=== PATIENT | female | born 1955 | race Caucasian/White ===

== ENCOUNTER 2018-02-28 04:46 | Inpatient (IN) | payer BC ==
[2018-02-27 16:01] LABS: INR 0.93
[2018-02-28] VITALS (11 sets, daily range): BP systolic 140–158; BP diastolic 86–100
[~2018-02-28] VITALS: Ht 159.4 cm; Wt 82.6 kg
--- NOTE | 2018-02-28 02:37 | LEVENE H&P ---
DATE OF ADMISSION: February 28, 2018 IDENTIFICATION/CHIEF COMPLAINT Kristy is a 62-year-old woman with chief complaint of right knee pain. HISTORY OF PRESENT ILLNESS Patient has a history of meniscal root tear requiring repair. She has gone on to develop progressive arthritis. Surgery was indicated to relieve symptoms after failure of nonoperative measures. PAST MEDICAL HISTORY Notable for generally excellent health. PAST SURGICAL HISTORY Notable for the above-noted contralateral knee replacement as well as right knee meniscal repair. ALLERGIES She reports no known drug allergies. CURRENT MEDICATIONS 1. She does take lisinopril, one tablet p.o. daily, for borderline hypertension. 2. She takes Mobic. No other drugs. FAMILY HISTORY Notable for parents with heart disease. SOCIAL HISTORY Negative for tobacco use. Drinks alcohol socially. REVIEW OF SYSTEMS Negative. PHYSICAL EXAMINATION GENERAL: This is a well-developed, well-nourished female who appears stated age. HEENT: Normocephalic, atraumatic. NECK: Supple. LUNGS: Clear to auscultation bilaterally. HEART: Regular rate and rhythm. ABDOMEN: Soft. ORTHOPEDIC EXAMINATION The right knee has varus alignment. She has an effusion present. She is tender at the medial joint line. Her old scars are well healed. Motion is fairly supple. Extensor function is intact. Gross stability is good. Radiographs demonstrate end-stage knee arthritis, most severely affecting the medial compartment. ASSESSMENT Right knee end-stage degenerative joint disease, progressively painful and debilitating, refractory to conservative care. PLAN Per patient request, going to proceed with total knee arthroplasty. The nature of the procedure, risks, benefits, and anticipated rehabilitative course were outlined. The risks of the procedure include but are not limited to , major medical or anesthetic complication, infection, neurovascular injury, blood transfusion, stiffness, scarring, fracture, tendon rupture, instability, implant loosening, migration or failure, persistent or recurrent symptoms, need for additional surgery and other unforeseen. She understands and wishes to proceed. A signed permit is placed in the chart. No guarantees are given or implied. FANI
[~2018-02-28 04:46] MED LIST: ACET-1966 PO; ASPI-764 PO; BENA20TA3 PO; CALC-515 PO; CHOL200021 PO; Diazepam PO; FLUT16SP20 NS; HYDR-318 PO; MELO-205 PO; OMEP-125 PO; OXYC-823 PO
[2018-02-28] MEDS: NORMOSOL R SOLN(*) 1000 ML BAG 1,000 ML IV PRN ×2 (08:23→10:53)
[2018-02-28] MEDS ORDERED: PROPOFOL(*)1000 MG/100 ML VIAL 100 ML ONE (08:26)
[2018-02-28] MEDS ORDERED: APREPITANT 40 MG CAP PO ONE (08:30)
[2018-02-28] MEDS ORDERED: DEXAMETHASONE SOD 4 MG/ML VIAL ONE (09:16)
[2018-02-28] MEDS ORDERED: LIDOCAINE MPF 1% 5 ML VIAL ONE (09:16)
[2018-02-28] MEDS ORDERED: METOCLOPRAMIDE 10 MG/2 ML SDV ONE (09:16)
[2018-02-28] MEDS ORDERED: ONDANSETRON 4 MG/2 ML VIAL ONE (09:16)
[2018-02-28] MEDS ORDERED: VANCOMYCIN 1 GM VIAL ONE (09:39)
[2018-02-28] MEDS ORDERED: TRANEXAMIC AC 1000 MG/10ML SDV 1,000 MG in DEXTROSE 5% 50 ML BAG 50 ML IV ONE (10:30)
[2018-02-28] MEDS ORDERED: ACETAMINOPHEN 500 MG TAB PO ONE (10:30)
[2018-02-28] MEDS ORDERED: FAMOTIDINE 20 MG TAB PO ONE (10:30)
[2018-02-28] MEDS ORDERED: LIDOCAINE/SOD BICARB 8.4% SYR ID ONE (10:30)
[2018-02-28] MEDS ORDERED: cloNIDine EPIDUR INJ 100MCG/ML 40 MCG, ROPIVACAINE 0.5% 20 ML VIAL 25 ML, EPINEPHrine H... INJ ONE (10:30)
[2018-02-28] MEDS ORDERED: ceFAZolin(*) 1 GM VIAL 1 GM in NS(*) 0.9% 100 ML ADDVANT BAG 100 ML IVPB ONE (10:30)
[2018-02-28] MEDS ORDERED: PREGABALIN 150 MG CAPSULE PO ONE (10:30)
[2018-02-28] MEDS ORDERED: MIDAZOLAM 2 MG/2 ML VIAL IVP PRN (10:30)
[2018-02-28] MEDS ORDERED: fentaNYL CITR 100 MCG/2 ML AMP ONE (10:55)
[2018-02-28] MEDS ORDERED: ACETAMINOPHEN 325 MG TAB PO PRN (13:05)
[2018-02-28] MEDS ORDERED: ZOLPIDEM TARTRATE 5 MG TAB PO PRN (13:05)
[2018-02-28] MEDS ORDERED: BENZOCAINE/MENTHOL 1 EACH LOZG PO PRN (13:05)
[2018-02-28] MEDS ORDERED: NORMOSOL R SOLN(*) 1000 ML BAG 1,000 ML IV PRN (13:05)
[2018-02-28] MEDS ORDERED: FLUSH 10 ML SYR IVP PRN (13:05)
[2018-02-28] MEDS ORDERED: MAGNESIUM HYDROXIDE* 30ML UDCP PO PRN (13:05)
[2018-02-28] MEDS ORDERED: PROMETHAZINE 25 MG/ML 1 ML AMP IVP PRN (13:05)
[2018-02-28] MEDS ORDERED: diphenhydrAMINE 25 MG CAP PO PRN (13:05)
[2018-02-28] MEDS ORDERED: BISACODYL 10 MG SUPP PR PRN (13:05)
[2018-02-28] MEDS ORDERED: diphenhydrAMINE 50 MG/ML VIAL IVP PRN (13:05)
--- NOTE | 2018-02-28 13:30 | RADIOLOGY IMAGING REPORT ---
FACILITY: [facility] PATIENT NAME: Wilda Rose : 1955 MR: [id number] V: [id number] EXAM DATE: ORDERING PHYSICIAN: AGUILA COPPOLA TECHNOLOGIST: Location: [facility] Patient: Wilda Rose : 1955 Visit/Account:[id number] Date of Sevice: 02/28/2018 KNEE LIMITED RIGHT Indication: S/P TOTAL KNEE ARTYHROPLASTY. CHECK PLACEMENT Comparison: None. Findings: There are postoperative changes from right total knee arthroplasty. The femoral, patellar, and tibial components are in good alignment. Impression: Postoperative changes right total knee arthroplasty. Report Dictated By: Rickey Poon at 02/28/2018 1:25 PM Report E-Signed By: iRckey Poon at 02/28/2018 1:26 PM WSN:ASTER
--- NOTE | 2018-02-28 14:06 | OPERATIVE REPORT 1 ---
EVENT DATE: February 28, 2018 SURGEON: Man Nicole MD ANESTHESIOLOGIST: John Batista MD ANESTHESIA: General plus spinal. SMALL ANIMAL CARETAKER: MARICEL Fierro PREOPERATIVE DIAGNOSIS Right knee degenerative joint disease. POSTOPERATIVE DIAGNOSIS Right knee degenerative joint disease. PROCEDURE PERFORMED Right total knee arthroplasty. ESTIMATED BLOOD LOSS Minimal. DRAINS None. SPECIMENS None. COMPLICATIONS None apparent. TOURNIQUET TIME 45 minutes. IMPLANTS USED Ap[employer] Triathlon knee system with 4 right PS femur, 4 standard tibial baseplate, 31 mm universal, cemented, all-polyethylene patellar button, and a 13 mm PS tibial tray liner. Polyethylene is X3. INDICATIONS Pat is a 62-year-old woman with intractable pain and disability related to endstage knee arthritis. Surgery is indicated to relieve symptoms after failure of nonoperative measures. DESCRIPTION OF PROCEDURE Patient was taken to the operating room and placed supine on the operating table. Spinal block was administered by the anesthesiologist. General anesthesia was induced. Standard antibiotics and TXA were administered IV. The right lower extremity was prepped and draped in the usual sterile fashion for knee arthroplasty. A standard midline incision was made, carried down through the skin and subcutaneous tissue to the extensor mechanism. Full-thickness flaps were developed far enough medially to allow medial parapatellar arthrotomy to be performed. Patella was everted. Knee was brought into flexed position. Fat pad, anterior horns of the menisci, and the cruciate ligaments are debrided. A subperiosteal medial release was initiated in a gentle titrated fashion to balance the knee. A step drill was used to enter the distal femur. A 10-inch long alignment guide was used to engage the isthmus, cut set for 6 degrees of valgus relative to the anatomic axis. The 10 mm resection block was applied, pinned, and distal femoral cuts made with oscillating saw. AP sizing guide is applied to the distal femoral cut, positioned for 3 degrees of external rotation relative to the posterior condyles. A size 4 is optimal without risk of notching. The four-in-one cutting block is applied. Anterior, posterior, posterior chamfer, and anterior chamfer cuts are made respectively. PS block was applied and centered. Medial and lateral bone is removed through the box. Attention is turned to the tibial preparation. The extramedullary guide is applied, positioned for varus, valgus, posterior slope, and rotation. This was set to resect 9 mm from the relatively intact lateral tibial plateau. It is dropped down a millimeter or two to assure an adequate cut. Block is pinned. Extramedullary alignment check is made. Cuts made with an oscillating saw. The gaps were balanced and symmetric with no further releases required. The size 4 tibial baseplate provides optimum bony coverage without soft tissue overhang. This was inserted along with the trial liner and the trial femur. The knee is brought to full extension and the patella is taken from the starting thickness of 21 mm to a residual of 14 mm with a patellar clamp and oscillating saw. The 31 provides optimum bony coverage without soft tissue overhand. Lug holes are drilled. Patella tracks nicely with the no-touch technique. Final tibial preparation consists of assuring appropriate rotational and translational positioning of the component. The boss is reamed. The fin is punched. Surfaces are lavaged. Methyl Methacrylate is made and the components cemented in a single stage. Once the cement is fully polymerized, tourniquet was deflated. Hemostasis was assured. the wounds copiously lavaged. The 13 PS tibial tray trial fills up the gap ideally, allowing the knee to drop to full extension without hyperextension, proving optimal soft tissue tension and stability. The tray is lavaged and dried, and the actual liner is locked into the baseplate. Joint was reduced. Arthrotomy was in closed in flexion with #2 Ethibond, subcutaneous tissue with 3-0 Vicryl, skin with surgical prosper. Xeroform and 4x4's applied and a dry, sterile dressing and compression wrap. The patient was awakened from anesthesia and taken to the recovery room in stable condition having tolerated the procedure well. PLAN Is for standard TKA rehab protocol. [facility]
--- NOTE | 2018-02-28 14:47 | Hospitalist Consultation ---
History of Present Illness Requesting Physician Dr. Nicole Reason for Consult Medical Management Chief Complaint s/p right total knee replacement History of Present Illness She was admitted s/p right total knee replacement. It is reported the surgery went well and without complication. History Problems: (1) HTN (hypertension) Status: Chronic Home Meds Reported Medications Meloxicam (MELOXICAM) 7.5 Mg Tablet, 15 MG PO QDAY 06/06/14 Benazepril Hcl (LOTENSIN) 20 Mg Tablet, 20 MG PO QDAY, TAB TAKE 1 TABLET BY MOUTH EVERY DAY 06/06/14 Discontinued Reported Medications Aspirin (ASPIRIN EC) 325 Mg Tablet.dr, 325 MG PO QDAY for 30 Days, TAB take enteric coated aspirin for 1 month 06/14/14 Hydrocodone/Acetaminophen (Lortab 7.5-325 mg Tablet) 1 Each Tablet, 1-2 TAB PO Q4-6H PRN for PAIN, #100 06/14/14 Oxycodone Hcl (OXYCONTIN) 10 Mg Tab.er.12h, 10 MG PO Q12H, #20 06/14/14 Cholecalciferol (Vitamin D3) (VITAMIN D) 2,000 Unit Capsule, 2000 UNIT PO, CAPSULE 06/11/14 Fluticasone Propionate (FLONASE) 16 Gm [place].susp, 2 SPRAYS NS QDAY 06/06/14 Omeprazole (OMEPRAZOLE) 20 Mg Capsule.dr, 1 CAP PO QDAY TAKE ONE CAPSULE BY MOUTH ONCE A DAY 06/06/14 Acetaminophen (TYLENOL) 325 Mg Tablet, 325 MG PO PRN for PAIN 06/06/14 Discontinued Scripts [Diazepam] 5 MG TAB No Conflict Check, 5 MG PO Q6H PRN for PAIN, #30 TAB Prov:BEVERLY CAMARA MD 06/14/14 Allergies: Coded Allergies: Sulfa (Sulfonamide Antibiotics) (Verified Allergy, Mild, RASH, 06/06/14) Patient History: FH: CAD (coronary artery disease) FATHER, MOTHER, FH: CVA (cerebrovascular accident) MOTHER, Hx Smoking: No Smoking Status: Never Smoker Caffeine Intake: Coffee Caffeine/Cups Per Day: 2-4 CUPS DAILY Hx Alcohol Use: Yes Hx Substance Use Disorder: No Social Drug Use: Never History of IV Drug Use: No Review of Systems All Systems Reviewed/Normal: Yes, Except as Noted Exam Vital Signs Vital Signs Date Time Temp Pulse Resp B/P (MAP) Pulse Ox O2 Delivery O2 Flow Rate FiO2 02/28/18 14:38 93 02/28/18 14:30 63 155/94 (114) 02/28/18 14:18 Nasal Cannula 0.5 02/28/18 14:04 96.2 16 General Appearance: Alert, Awake, No Acute Distress, Afebrile Neuro: No Gross deficits Cardiovascular: Regular Rate and Rhythm Respiratory: No Respiratory Distress, Clear to Auscultation GI: Abd Soft and Non-Tender Psych: Alert & Oriented X3, Appropriate Mood & Affect Assessment and Plan Problems: (1) S/P total knee replacement Status: Acute Assessment & Plan: She will be placed on Aspirin for DVT prophylaxis. She has no history of DVT or PE. (2) HTN (hypertension) Status: Chronic Assessment & Plan: She is on chronic treatment with Benazepril. This has been restarted with hold parameters. Venous Thromboembolism Antithrombotics Is Pt On Any Antithrombotics?: No Exam Sepsis Risk: No Definite Risk Problem Qualifiers (1) S/P total knee replacement: Laterality: right Qualified Codes: Z96.651 - Presence of right artificial knee joint VLAD MARTINEZ ANALYTICAL SCIENTIST Feb 28, 2018 14:47
[2018-02-28] MEDS: APAP/HYDROCODONE 325/7.5 TAB PO PRN ×3 (15:12→19:58)
[2018-02-28] MEDS: ceFAZolin(*) 1 GM VIAL 1 GM in NS(*) 0.9% 100 ML ADDVANT BAG 100 ML IVPB SCH (19:58)
[2018-03-01] VITALS (7 sets, daily range): BP systolic 135–157; BP diastolic 69–93; Ht 159.4 cm; Wt 82.6 kg
[2018-03-01] MEDS: APAP/HYDROCODONE 325/7.5 TAB PO PRN ×4 (00:28→18:25)
[2018-03-01] MEDS: DIAZEPAM 5 MG TAB PO PRN ×3 (00:28→15:33)
[2018-03-01] MEDS: ceFAZolin(*) 1 GM VIAL 1 GM in NS(*) 0.9% 100 ML ADDVANT BAG 100 ML IVPB SCH ×2 (04:00→11:42)
--- NOTE | 2018-03-01 08:21 | Hospitalist Progress Note ---
Subjective Progress Notes Subjective She has complaints of pain to the surgery site this morning. She had no acute events overnight. Patient Complains of: Cardiovascular: No: Chest Pain Respiratory: No: Shortness of Breath Physical Exam Vital Signs Date Time Temp Pulse Resp B/P (MAP) Pulse Ox O2 Delivery O2 Flow Rate FiO2 03/01/18 04:20 70 16 154/91 (112) 97 Nasal Cannula 1.0 03/01/18 00:30 98.1 Intake and Output 03/01/18 06:59 Intake Total 4230 ml Balance 4230 ml Intake Oral 1680 ml IV Total 2550 ml # Voids 3 General Appearance: Alert, Awake, No Acute Distress, Afebrile Neuro: No Gross deficits Cardiovascular: Regular Rate and Rhythm Respiratory: No Respiratory Distress, Clear to Auscultation GI: Soft and Non-Tender Psych: Alert & Oriented X3, Appropriate Mood & Affect Assessment and Plan Problems: (1) S/P total knee replacement Status: Acute Assessment & Plan: She will be placed on Aspirin for DVT prophylaxis. She has no history of DVT or PE. (2) HTN (hypertension) Status: Chronic Assessment & Plan: She is on chronic treatment with Benazepril. This has been restarted with hold parameters. Exam Sepsis Risk: No Definite Risk Problem Qualifiers (1) S/P total knee replacement: Laterality: right Qualified Codes: Z96.651 - Presence of right artificial knee joint VLAD MARTINEZP Mar 01, 2018 08:21
[2018-03-01] MEDS: BENAZEPRIL HCL 20 MG TAB PO SCH (08:27)
[2018-03-01] MEDS: ASPIRIN 325 MG TAB PO SCH (08:27)
[2018-03-01] MEDS ORDERED: MORPHINE 4 MG/ML SDV IVP ONE (13:25)
[2018-03-02 00:15] VITALS: BP 159/95
[2018-03-02] MEDS: DIAZEPAM 5 MG TAB PO PRN (00:20)
[2018-03-02] MEDS: APAP/HYDROCODONE 325/7.5 TAB PO PRN ×3 (00:21→09:59)
[2018-03-02 03:45] VITALS: BP 160/90
--- NOTE | 2018-03-02 08:12 | Hospitalist Progress Note ---
Subjective Progress Notes Subjective She only c/o some pain and swelling in surgical site. No CP/SOB/N/V. Physical Exam Vital Signs Date Time Temp Pulse Resp B/P (MAP) Pulse Ox O2 Delivery O2 Flow Rate FiO2 03/02/18 05:04 86 03/02/18 03:45 98.2 91 18 160/90 (113) Nasal Cannula 1.0 Intake and Output 03/02/18 07:00 Intake Total 1730 ml Balance 1730 ml Intake Oral 1630 ml IV Total 100 ml # Voids 6 General Appearance: Alert, Awake Cardiovascular: Regular Rate and Rhythm Respiratory: Clear to Auscultation Assessment and Plan Problems: (1) S/P total knee replacement Status: Acute Assessment & Plan: She will be on Aspirin 325mg daily for 30 days for DVT prophylaxis. She has no history of DVT or PE. (2) HTN (hypertension) Status: Chronic Assessment & Plan: She is on chronic treatment with Benazepril. She will follow up with her primary care provider in next few weeks. Exam Sepsis Risk: No Definite Risk Problem Qualifiers (1) S/P total knee replacement: Laterality: right Qualified Codes: Z96.651 - Presence of right artificial knee joint RADHA CAMARA MD Mar 02, 2018 08:12
[2018-03-02] MEDS ORDERED: ASPI-757 PO (08:14)
[2018-03-02] MEDS ORDERED: OXYC-823 PO (08:22)
[2018-03-02] MEDS ORDERED: CELE-1 PO (08:22)
[2018-03-02] MEDS ORDERED: HYDR-654 PO (08:23)
[2018-03-02] MEDS ORDERED: DIA5 PO (08:23)
[2018-03-02 09:23] VITALS: BP 148/89
[2018-03-02] MEDS: BENAZEPRIL HCL 20 MG TAB PO SCH (09:27)
[2018-03-02] MEDS: ASPIRIN 325 MG TAB PO SCH (09:27)
== END 2018-03-02 10:25 | disposition home or self-care (01) | DRG 470 ==
LOC: OR 04:46 → MED 14:00
PROVIDERS: ADMIT Orthopaedic Surgery; ATTEND Orthopaedic Surgery
PROC: 0SRC0J9 Replacement of Right Knee Joint with Synthetic Substitute, Cemented, Open Approach (ICD-10-PCS; principal; 2018-02-28 10:57)
DX: M17.11 Unilateral primary osteoarthritis, right knee (principal); M23.221 Derangement of posterior horn of medial meniscus due to old tear or injury, right knee; I10 Essential (primary) hypertension; M1A.9XX0 Chronic gout, unspecified, without tophus (tophi); Z96.652 Presence of left artificial knee joint; Z88.2 Allergy status to sulfonamides
CPT/HCPCS: 36415; 81001; 85610; 86850; 86900; 86901; 87088; 97161; C1713; C1776; J0171; J0690; J0735; J1100; J1885; J2001; J2250; J2270; J2405; J2704; J2765; J2795; J3010; J3370; J7050; J7060; J8501